=== PATIENT | female | born 1970 | race Caucasian/White ===

== ENCOUNTER 2018-09-11 23:54 | Emergency (ER) | payer OTHER ==
[~2018-09-11] VITALS: Ht 162.6 cm; Wt 62.8 kg
[2018-09-11 23:58] VITALS: Ht 162.6 cm; Wt 62.8 kg
[2018-09-12 01:46] LABS: PLATELET COUNT 375 x10^3mcL (130-400); RED CELL DISTRIBUTION WIDTH 11.5 % (11.5-14.5)
[2018-09-12 01:57] LABS: CALCIUM 8.9 mg/dL (8.5-10.1); CARBON DIOXIDE 26.8 mmol/L (21-32); CHLORIDE SERUM 100 mmol/L (98-107); CREATININE SERUM 0.7 mg/dL (0.6-1.0); GFR1 > 60 mL/min; GLUCOSE SERUM 110 mg/dL (74-106); POTASSIUM SERUM 3.2 mmol/L (3.5-5.1); SODIUM SERUM 138 mmol/L (136-145)
[2018-09-12 02:05] LABS: MONOCYTE 6 % (0-7); PLATELET MORPHOLOGY PLATELETS NORMAL; SEGMENTED NEUTROPHILS 83 % (37-75); rbc morphology (normal/abnorm) NORMAL (NORMAL)
[2018-09-12 02:08] LABS: ALBUMIN 3.6 g/dL (3.4-5.0); ALKALINE PHOSPHATASE 65 U/L (46-116); ALT/SGPT 51 U/L (14-59); AST/SGOT 30 U/L (15-37); BILIRUBIN TOTAL 0.58 mg/dL (0.20-1.00); FREE T4 1.02 ng/dL (0.76-1.46); LIPASE 120 IU/L (73-393); TOTAL PROTEIN, SERUM 7.5 g/dL (6.4-8.2)
[2018-09-12 02:10] LABS: microscopic required? YES; urine erythrocyte TRACE (NEGATIVE)
[2018-09-12 02:30] LABS: AMPHETAMINE QUAL UR NONE DETECTED (See below)
[2018-09-12 05:05] VITALS: BP 114/64
== END 2018-09-12 05:05 | disposition home or self-care (01) ==
LOC: ED 23:54
PROVIDERS: Emergency Medicine
DX: R42 Dizziness and giddiness (principal); R11.2 Nausea with vomiting, unspecified; R53.1 Weakness
CPT/HCPCS: 83880; 84439; G0480; J2405; J7030; J8597